=== PATIENT | female | born 1975 | race Caucasian/White ===

== ENCOUNTER 2020-06-23 18:40 | Emergency (ER) | payer SELFPAY ==
[2020-06-23 18:50] VITALS: BP 149/76; PULSE 99; RESP 18; TEMP 36.7; O2SAT 100
--- NOTE | 2020-06-23 19:06 | ED.GENADULT ---
HPI - General Adult General Chief complaint: Skin/Abscess/Foreign Body Stated complaint: Rash Time Seen by Provider: 06/23/20 19:06 Source: patient Mode of arrival: ambulatory Limitations: no limitations History of Present Illness HPI narrative: 45-year-old female patient presents to the [facility] with complaints of a rash to the face for the past 3 days. Patient states the rash is very itchy. Patient states she has tried using coconut oil on it but denies any antihistamines or antiitch cream. Denies any shortness of breath, trouble swallowing or any swelling to the face. 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 Related Data Allergies Allergy/AdvReac Type Severity Reaction Status Date / Time No Known Allergies Allergy Verified 06/23/20 19:10 Review of Systems Review of Systems: Narrative: CONSTITUTIONAL: Denies fever, chills, or sweats. EYES: Denies visual changes, redness, or discharge. ENT: Denies rhinorrhea, congestion, sore throat, or otalgia. CARDIOVASCULAR: Denies chest pain, palpitations, or edema. RESPIRATORY: Denies cough or dyspnea. GASTROINTESTINAL: Denies abdominal pain, nausea, vomiting, or diarrhea. GENITOURINARY: Denies dysuria or hematuria. SKIN: Positive rash to face and neck x3 days with itching MUSCULOSKELETAL: Denies back pain, joint pain, or myalgia. NEUROLOGIC: Denies headache, numbness, or weakness. PSYCHIATRIC: Denies anxiety or depression. [facility] Surgical History Surgical History (Updated 06/23/20 @ 19:07 by DOROTEO Pappas) H/O knee surgery H/O: hysterectomy Comments At the time of my signature I agree with nursing past medical history, surgical, social, and family history. There is no relevant family history pertinent to the presenting complaint. Exam Narrative: Exam Narrative: GENERAL: Well-appearing, well-nourished, and in no acute distress. HEAD: Normocephalic, atraumatic. EYES: PERRLA and EOMI. ENT: Nares clear, no rhinorrhea or epistaxis. Mucous membranes moist. No swelling noted on exam. NECK: Supple. No lymphadenopathy. No stridor noted CHEST: Clear to auscultation. No respiratory distress. HEART: Regular rate and rhythm. No murmur heard. Normal peripheral pulses. ABDOMEN: Soft, nontender, nondistended, normal active bowel sounds. EXTREMITIES: Normal range of motion. No edema. SKIN: Warm, dry, patient has raised erythemic papules noted to various areas all over the anterior neck that go back towards the ears along with a similar rash noted to the chin, upper lip and cheeks. The rash does not go under the T-shirt line. NEURO: No focal deficits. Alert and oriented x3. Course Vital Signs Vital signs: Vital Signs Temperature 36.7 C 06/23/20 18:50 Pulse Rate 99 06/23/20 18:50 Respiratory Rate 18 06/23/20 18:50 Blood Pressure 149/76 H 06/23/20 18:50 Pulse Oximetry 100 06/23/20 18:50 Temperature 36.7 C 06/23/20 19:11 Pulse Rate 99 06/23/20 19:11 Respiratory Rate 18 06/23/20 19:11 Blood Pressure 149/76 H 06/23/20 19:11 Pulse Oximetry 100 06/23/20 19:11 Vital signs reviewed The patient has been informed that they may have pre-hypertension or Hypertension based on a BP reading in the department. I recommend that the patient call the primary care provider listed on their discharge instructions or a physician of their choice this week to arrange follow up for further evaluation of possible pre-hypertension or Hypertension Medical Decision Making Differential Diagnosis Differential Diagnosis: Differential diagnosis: Contact dermatitis, poison dejah, poison sumac, psoriasis, eczema, allergic reaction, drug reaction, scabies, tinea syphilis, lung disease, viral exanthema, pityriasis, erythema multiforme. Cussed with patient we will go ahead and treat her with some oral steroi
[2020-06-23 19:11] VITALS: BP 149/76; PULSE 99; RESP 18; TEMP 36.7; O2SAT 100
== END 2020-06-23 19:15 | disposition home or self-care (01) ==
PROVIDERS: Emergency Provider Nurse Practitioner Family
DX: R21 Rash and other nonspecific skin eruption (principal)
CPT/HCPCS: 99213; G0463